=== PATIENT | female | born 1990 | race Caucasian/White ===

== ENCOUNTER 2022-08-04 15:30 | Outpatient (CLI) | payer SELFPAY | END 2022-08-04 15:31 | disposition home or self-care (01) | LOC: CSHRAD 15:30 | PROVIDERS: ATTEND Family Medicine | DX: R10.84 Generalized abdominal pain (principal) | CPT/HCPCS: 74022 ==

== ENCOUNTER 2023-09-11 21:03 | Emergency (ER) | payer SELFPAY ==
[~2023-09-11 21:03] MED LIST: Iopamidol 300 61% 100 ML VIAL FS ONE
[2023-09-11] MEDS ORDERED: Ondansetron PF 4 MG/2 ML Vial ONE (21:33)
[2023-09-11] MEDS ORDERED: Morphine 4 MG/ML VIAL ONE (21:33)
[2023-09-11 22:05] LABS: #Eosinphils 0.1 10x3/uL (0.0-0.5); #Monocytes 0.7 10x3/uL (0.0-1.1); #Neutrophils 5.3 10x3/uL (1.5-8.4); %Basophils 0.4 % (0.0-2.0); %Eosinophils 0.9 % (0.0-6.0); %Lymphocytes 21.1 % (18.0-47.0); %Monocytes 8.7 % (0.0-10.0); %Neutrophils 68.6 % (40.0-75.0); Hematocrit 37.8 % (34.9-44.5); Mean Corpuscular HGB CONC 34.4 g/dL (32.0-36.0); Mean Corpuscular Hemoglobin 30.7 pg (27.0-33.0); Mean Corpuscular Volume 89.4 fl (81.6-98.3); Mean Platelet Volume 9.2 fl (7.4-10.4); Platelet Count 327 10x3/uL (150-450); RBC Distribution Width 12.2 % (11.5-14.5); Red Blood Cell (RBC) Count 4.23 10x6/uL (3.90-5.03); White Blood Cell (WBC) Count 7.7 10x3/uL (3.5-10.5)
[2023-09-11 22:14] LABS: ALT (SGPT) 71 U/L (8-55); AST (SGOT) 43 U/L (5-34); Albumin 4.4 g/dL (3.5-5.0); Alkaline Phosphatase 61 U/L (40-110); Anion Gap 15 mmol/L (10-20); BUN (Urea Nitrogen) 10 mg/dL (7.0-18.7); Bilirubin, Total 0.4 mg/dL (0.2-1.2); Calc. Creatinine Clearance 0 mL/min (70-130); Carbon Dioxide 23 mmol/L (22-29); Chloride 104 mmol/L (98-107); Estimated GFR 103; Globulin 3.3 g/dL (2.4-3.5); Glucose 110 mg/dL (70-105); Protein, Total 7.7 g/dL (6.0-8.3); Sodium 138 mmol/L (136-145)
[2023-09-11 22:35] LABS: BHCG - Serum Negative (NEGATIVE); Pregs Control Background? CLEAR/WHITE (CLR/WHITE); Pregs Control Bar Appear? YES (CONTROL BAR)
[2023-09-11 22:42] LABS: Bilirubin Neg (Negative); Blood, Urine 250 (Negative); Glucose, Urine (Dipstick) Normal (Negative); Ketone, Urine Negative (Negative); Leukocyte 25 (Negative); Nitrite Negative (Negative); Protein, Urine (Dipstick) Negative (Neg-Trace); Specific Gravity, Urine 1.015 (1.005-1.030); Urobilinogen Normal mg/dL (Less than 2)
[2023-09-11 22:49] LABS: Pregnancy Test - Urine (BHCG) Negative (Negative); Pregu Control Background? CLEAR/WHITE (CLR/WHITE); Pregu Control Bar Appear? YES (CONTROL BAR); Specific Gravity 1.015 (1.002-1.036)
[2023-09-11 22:51] LABS: CAUTI Indications for Culture Pelvic or flank pain; Clarity Cloudy (Clear)
[2023-09-11 22:52] LABS: Bacteria/HPF 1+ HPF (None Seen); Urine Culture Reflex No No; WBC/HPF 0-3 HPF (0-3)
[2023-09-11] MEDS ORDERED: cefTRIAXone (ROCEPHIN) 1 GM VIAL ONE (23:17)
== END 2023-09-11 23:59 | disposition home or self-care (01) ==
LOC: CSHERS 21:03
DX: N39.0 Urinary tract infection, site not specified (principal); L20.9 Atopic dermatitis, unspecified; R50.9 Fever, unspecified; R52 Pain, unspecified
CPT/HCPCS: 74177; 80053; 81001; 81025; 84703; 85025; 96374; 96375; J0696; J2270; J2405; Q9967

== ENCOUNTER 2025-03-31 23:35 | Emergency (ER) | payer OTHER, SELFPAY ==
[2025-04-01 00:37] LABS: Glucose, Urine (Dipstick) Normal (Negative); Leukocyte 25 (Negative); Protein, Urine (Dipstick) Negative (Neg-Trace); Specific Gravity, Urine 1.005 (1.005-1.030)
[2025-04-01 00:44] LABS: #Basophils Less than 0.03 10x3/uL (0.0-0.2); #Eosinophils Less than 0.03 10x3/uL (0.0-0.5); #Monocytes 0.51 10x3/uL (0.0-1.1); #Neutrophils 11.06 10x3/uL (1.5-8.4); %Basophils 0.2 % (0.0-2.0); %Eosinophils 0.0 % (0.0-6.0); %Lymphocytes 5.7 % (18.0-47.0); %Monocytes 4.1 % (0.0-10.0); %Neutrophils 89.5 % (40.0-75.0); Hematocrit 41.4 % (34.9-44.5); Hemoglobin 13.6 g/dL (12.0-15.5); Mean Corpuscular Hemoglobin 30.8 pg (27.0-33.0); Mean Corpuscular Volume 93.9 fL (81.6-98.3); Platelet Count 297 10x3/uL (150-450); Red Blood Cell (RBC) Count 4.41 10x6/uL (3.90-5.03); White Blood Cell (WBC) Count 12.35 10x3/uL (3.5-10.5)
[2025-04-01 00:47] LABS: Cocaine Metabolite Screen Negative (Negative); THC/Cannabinoid Screen Negative (Negative); Tricyclic Screen Negative (Negative)
[2025-04-01 00:54] LABS: Bacteria/HPF 1+ HPF (None Seen); CAUTI Indications for Culture Pelvic or flank pain; RBC/HPF 0-3 HPF (0-3); Sperm/HPF Rare HPF (None Seen); WBC/HPF 0-3 HPF (0-3)
[2025-04-01 00:55] LABS: Urine Culture Reflex No No
[2025-04-01 00:57] LABS: BHCG - Serum Negative (NEGATIVE); Pregs Control Background? CLEAR/WHITE (CLR/WHITE); Pregs Control Bar Appear? YES (CONTROL BAR)
[2025-04-01 01:01] LABS: Acetaminophen Less than 10 mcg/mL (Less than 10); Lipase 18 U/L (8-78); Salicylate Less than 8.0 mg/dL (Less than 8.0)
[2025-04-01 01:02] LABS: ALT (SGPT) 40 U/L (Less than 34); AST (SGOT) 33 U/L (11-34); Albumin 4.5 g/dL (3.1-4.5); Alkaline Phosphatase 82 U/L (40-110); Anion Gap 14 mmol/L (10-20); BUN (Urea Nitrogen) 13 mg/dL (7.0-18.7); Bilirubin, Total 0.6 mg/dL (0.3-1.2); CK (CPK) 92 U/L (29-168); Calc. Creatinine Clearance 0 mL/min (70-130); Calcium 9.6 mg/dL (7.8-10.44); Carbon Dioxide 23 mmol/L (22-29); Chloride 106 mmol/L (98-107); Globulin 3.3 g/dL (2.4-3.5); Glucose 193 mg/dL (70-105); Potassium 4.1 mmol/L (3.5-5.1); Sodium 139 mmol/L (136-145)
[2025-04-01 01:08] LABS: Troponin I 0.010 ng/mL (< 0.028)
[2025-04-01] MEDS ORDERED: diphenhydrAMINE 50 MG/ML VIAL ONE (02:25)
[2025-04-01] MEDS ORDERED: Famotidine/PF 20 mg/2ml Vial ONE (02:26)
== END 2025-04-01 03:41 | disposition home or self-care (01) ==
LOC: CSHERS 23:35
DX: R20.2 Paresthesia of skin (principal); R20.0 Anesthesia of skin
CPT/HCPCS: 36415; 70450; 71045; 80053; 80306; 80307; 81001; 82140; 82550; 83605; 83690; 84443; 84484; 84703; 85025; 93005; 94760; 96374; 96375; J1200; J1308